=== PATIENT | male | born 1970 | race Caucasian/White ===

== ENCOUNTER 2019-08-25 22:13 | Emergency (ER) | payer BC | END 2019-08-25 22:18 | disposition left against medical advice (07) | LOC: LB.ED 22:13 | DX: Z53.21 Procedure and treatment not carried out due to patient leaving prior to being seen by health care provider (principal) | CPT/HCPCS: A0425; A0429 ==

== ENCOUNTER 2022-02-11 17:44 | Emergency (ER) | payer OTHER, BC ==
[2022-02-15] MEDS ORDERED: Lidocaine 1% with EPINEPHrine 1:100,000 50 ML MDV INFILT ONE (09:25)
== END 2022-02-11 18:21 | disposition home or self-care (01) ==
LOC: LB.ED 17:44
DX: S81.811A Laceration without foreign body, right lower leg, initial encounter (principal); Z79.899 Other long term (current) drug therapy; Z88.1 Allergy status to other antibiotic agents; W01.0XXA Fall on same level from slipping, tripping and stumbling without subsequent striking against object, initial encounter; Y99.0 Civilian activity done for income or pay
CPT/HCPCS: 12001; 99281; 99282

== ENCOUNTER 2022-05-27 18:07 | Emergency (ER) | payer BC | END 2022-05-27 18:45 | disposition home or self-care (01) | LOC: LB.ED 18:07 | DX: T33.531A Superficial frostbite of right finger(s), initial encounter (principal); T33.532A Superficial frostbite of left finger(s), initial encounter; I10 Essential (primary) hypertension; Z88.1 Allergy status to other antibiotic agents; Z79.899 Other long term (current) drug therapy; X31.XXXA Exposure to excessive natural cold, initial encounter | CPT/HCPCS: 99283 ==

== ENCOUNTER 2023-04-27 20:00 | Emergency (ER) | payer OTHER, BC ==
[2023-04-27] MEDS ORDERED: Lidocaine 1% with EPINEPHrine 1:100,000 20 ML MDV INJECT ONE (20:54)
[2023-04-27] MEDS ORDERED: Bacitracin Oint 1 GM U/D Packet TOP ONE (20:55)
[2023-04-27] MEDS ORDERED: Cephalexin 500 MG Cap ONE (21:30)
[2023-04-27] MEDS ORDERED: Ciprofloxacin 0.3% Ophth Soln 2.5 ML Bottle ONE (21:30)
[2023-04-27] MEDS ORDERED: Diphtheria,Pertussis(Acell),Tetanus Vaccine 0.5 ML Syringe IM ONE (21:37)
== END 2023-04-27 21:42 | disposition home or self-care (01) ==
LOC: LB.ED 20:00
DX: S01.01XA Laceration without foreign body of scalp, initial encounter (principal); S01.21XA Laceration without foreign body of nose, initial encounter; S05.01XA Injury of conjunctiva and corneal abrasion without foreign body, right eye, initial encounter; I10 Essential (primary) hypertension; Z79.82 Long term (current) use of aspirin; Z79.899 Other long term (current) drug therapy; Z88.0 Allergy status to penicillin; Z88.1 Allergy status to other antibiotic agents; W31.89XA Contact with other specified machinery, initial encounter
CPT/HCPCS: 12002; 12011; 70450; 90471; 90715; 99283; 99283-25; A9270-GY